=== PATIENT | female | born 1935 | race Caucasian/White ===

== ENCOUNTER → 2017-05-02 | Outpatient (CLI) | payer MEDICARE ==
[~2017-05-02] MED LIST: FLUO20CA19 PO; LEVO50TA5 PO; OMEP20TA62 PO; VANC125C2 PO
== END | disposition home or self-care (01) ==
LOC: CFH 10:37
PROVIDERS: ATTEND Family Medicine
DX: Z12.31 Encounter for screening mammogram for malignant neoplasm of breast (principal); R32 Unspecified urinary incontinence; K21.9 Gastro-esophageal reflux disease without esophagitis; Z85.048 Personal history of other malignant neoplasm of rectum, rectosigmoid junction, and anus
CPT/HCPCS: 74000; G0202

== ENCOUNTER → 2017-05-20 | Outpatient (CLI) | payer MEDICARE | END | disposition home or self-care (01) | LOC: STAR 11:09 | PROVIDERS: ATTEND Family Medicine | DX: Z01.810 Encounter for preprocedural cardiovascular examination (principal); R94.31 Abnormal electrocardiogram [ECG] [EKG]; R53.83 Other fatigue | CPT/HCPCS: 93005 ==

== ENCOUNTER → 2018-05-29 | Outpatient (CLI) | payer MEDICARE | END | disposition home or self-care (01) | LOC: CFH 11:16 | PROVIDERS: ATTEND Obstetrics & Gynecology Gynecology | DX: Z12.31 Encounter for screening mammogram for malignant neoplasm of breast (principal) | CPT/HCPCS: 77067 ==

== ENCOUNTER 2019-06-15 09:15 | Outpatient (CLI) | payer MEDICARE | END 2019-06-15 23:59 | disposition home or self-care (01) | LOC: CFH 09:15 | PROVIDERS: ATTEND Family Medicine | DX: Z12.31 Encounter for screening mammogram for malignant neoplasm of breast (principal) | CPT/HCPCS: 77067 ==

== ENCOUNTER 2019-08-20 14:07 | Outpatient (CLI) | payer MEDICARE ==
[~2019-08-20 14:07] MED LIST changes: -VANC125C2 PO; +VANC125C3 PO
== END 2019-08-20 23:59 | disposition home or self-care (01) ==
LOC: CFH 14:07
PROVIDERS: ATTEND Family Medicine
DX: J20.9 Acute bronchitis, unspecified (principal)
CPT/HCPCS: 71046

== ENCOUNTER → 2020-06-20 | Outpatient (CLI) | payer MEDICARE | END | disposition home or self-care (01) | LOC: CFH 10:04 | PROVIDERS: ATTEND Family Medicine | DX: Z12.31 Encounter for screening mammogram for malignant neoplasm of breast (principal) | CPT/HCPCS: 77067 ==

== ENCOUNTER 2021-02-05 00:01 | Inpatient (IN) | payer MEDICARE ==
[~2021-02-05] VITALS: Ht 165.1 cm; Wt 69.7 kg
--- NOTE | 2021-02-05 00:15 | NUR ---
INITIAL PT CONTACT. PT PRESENTS TO ED C/O CHEST PAIN SINCE 1999. PT STATES IT FEELS LIKE REFULX BUT KEPT GETTING WORSE, "IT HURTS WHEN I PUSH ON MY RIGHT SIDE TOO. I JUST DONT FEEL GOOD. I AM DEFINTELY HAVING NAUSEA TOO, I HAVE MAYBE JUST A LITTLE BIT OF DIZZINESS TOO". PT SITTING UPRIGHT ON GURNEY, PLACED ON CONTINUOUS PULSE OX AND CARDIAC MONITORING. PT DENIES ANY NEEDS AT THIS TIME. CALL LIGHT AND PERSONAL BELONGIGNS WITHIN REACH. FRIEND AT BEDSIDE. ERP AT BEDSIDE.
[2021-02-05] MEDS ORDERED: SODIUM CHLORIDE FLUSH 10ML SYR IVF ONE (00:30)
[2021-02-05] MEDS ORDERED: MAALOX/HYOSCYAMINE/LIDOCAINE 45 ML BTL ONE (00:45)
[2021-02-05 00:59] LABS: BASOPHILS % (AUTO) 0 % (0-1); EOSINOPHILS % (AUTO) 0 % (1-7); LYMPHOCYTES % (AUTO) 6 % (22-44); MEAN CORPUSCULAR HEMOGLOBIN 33.8 pg (27.0-34.8); MEAN CORPUSCULAR HGB CONC 34.1 g/dL (32.4-35.8); MEAN PLATELET VOLUME 7.8 fL (7.4-10.4); MONOCYTES % (AUTO) 7 % (2-9); NEUTROPHILS % (AUTO) 87 % (42-75); PLATELET COUNT 261 x10^3/uL (130-400); RED BLOOD COUNT 3.71 x10^6/uL (3.82-5.3); RED CELL DISTRIBUTION WIDTH 13.6 % (9.6-15.2)
[2021-02-05 01:00] LABS: MD NO
[2021-02-05] MEDS ORDERED: ONDANSETRON 2MG/ML, 2ML IVPush ONE (01:00)
[2021-02-05] MEDS ORDERED: PANTOPRAZOLE 80 MG in SODIUM CHLORIDE 0.9% 100 ML IV SCH (01:00)
[2021-02-05] MEDS ORDERED: MAALOX/HYOSCYAMINE/LIDOCAINE 45 ML BTL PO ONE (01:00)
[2021-02-05] MEDS ORDERED: PANTOPRAZOLE 80 MG in SODIUM CHLORIDE 0.9% 50 ML IVPB ONE (01:00)
[2021-02-05] MEDS ORDERED: ONDANSETRON 2MG/ML, 2ML ONE (01:00)
[2021-02-05 01:04] LABS: INTERNATIONAL NORMALIZED RATIO 0.98 (0.93-1.1); PROTHROMBIN TIME 10.5 Seconds (9.6-11.5)
[2021-02-05 01:05] LABS: ALANINE AMINOTRANSFERASE 88 U/L (12-78); ALBUMIN 3.3 g/dL (3.4-5.0); ANION GAP 7 mmol/L (5-15); CHLORIDE 100 mmol/L (98-107); CREATININE 0.85 mg/dL (0.55-1.02)
[2021-02-05 01:15] LABS: ALKALINE PHOSPHATASE 146 U/L (45-117); BILIRUBIN,TOTAL 0.6 mg/dL (0.2-1.0); TOTAL PROTEIN 6.6 g/dL (6.4-8.2); TROPONIN I < 0.015 ng/mL (0.000-0.045)
--- NOTE | 2021-02-05 01:42 | NUR ---
pt to us
[2021-02-05] MEDS ORDERED: hydrALAzine 20 MG/ML, 1ML IVPush PRN (02:00)
[2021-02-05] MEDS ORDERED: OXYcodone IR 5MG TABLET PO PRN (02:00)
[2021-02-05] MEDS ORDERED: ENOXAPARIN 40 MG/0.4 ML SQ SCH (02:00)
[2021-02-05] MEDS ORDERED: NITROGLYCERIN 0.4 MG BOTTLE (25 TABS) SL PRN (02:00)
[2021-02-05] MEDS ORDERED: ACETAMINOPHEN 325 MG TABLET PO PRN (02:00)
[2021-02-05] MEDS ORDERED: ONDANSETRON ODT 4 MG PO PRN (02:00)
[2021-02-05] MEDS ORDERED: PROMETHAZINE 25 MG/ML, 1ML IM PRN (02:00)
[2021-02-05] MEDS ORDERED: POLYETHYLENE GLYCOL 17 GM PACKET PO PRN (02:00)
[2021-02-05] MEDS ORDERED: ONDANSETRON 2MG/ML, 2ML IVPush PRN (02:00)
[2021-02-05] MEDS ORDERED: SODIUM CHLORIDE 0.9% 1,000 ML IV SCH (02:00)
[2021-02-05] MEDS ORDERED: BISACODYL 10 MG SUPP PR PRN (02:00)
[2021-02-05] MEDS ORDERED: DOCUSATE 100 MG CAPSULE PO PRN (02:00)
--- NOTE | 2021-02-05 02:01 | NUR ---
Pt to be admitted to [facility], room 511-2. Report called to SILVA WOOD.
[2021-02-05 02:40] LABS: FREE T4 (FREE THYROXINE) 1.51 ng/dL (0.76-1.46)
[2021-02-05] MEDS ORDERED: PANTOPRAZOLE 40 MG IV ONE (02:44)
[2021-02-05] MEDS: PANTOPRAZOLE 40 MG IV IVPush SCH ×2 (02:48→13:35)
[2021-02-05 03:16] VITALS: BP 127/69
[2021-02-05 06:35] LABS: TROPONIN I < 0.015 ng/mL (0.000-0.045)
[2021-02-05 07:56] VITALS: BP 138/61
[2021-02-05 08:17] LABS: MICROSCOPIC AUTO
[2021-02-05] MEDS: LEVOTHYROXINE 50 MCG TABLET PO SCH (08:38)
[2021-02-05] MEDS: FLUOXETINE HCL 20 MG CAPSULE PO SCH ×2 (08:38→08:39)
[2021-02-05] MEDS ORDERED: TEMPLATE NON-FORMULARY MED. (Omeprazole Magnesium** (Prilosec Otc**) 20 MG) PO SCH (09:00)
[2021-02-05] MEDS ORDERED: LACTATED RINGERS 1,000 ML IV SCH (10:30)
[2021-02-05] MEDS ORDERED: SINCALIDE (KINEVAC) 5 MCG ONE (12:10)
[2021-02-05 13:48] LABS: BASOPHILS % (AUTO) 0 % (0-1); EOSINOPHILS % (AUTO) 0 % (1-7); LYMPHOCYTES % (AUTO) 3 % (22-44); MEAN CORPUSCULAR HEMOGLOBIN 33.2 pg (27.0-34.8); MEAN CORPUSCULAR HGB CONC 33.7 g/dL (32.4-35.8); MEAN PLATELET VOLUME 7.8 fL (7.4-10.4); MONOCYTES % (AUTO) 9 % (2-9); NEUTROPHILS % (AUTO) 88 % (42-75); PLATELET COUNT 255 x10^3/uL (130-400); RED BLOOD COUNT 3.92 x10^6/uL (3.82-5.3); RED CELL DISTRIBUTION WIDTH 13.8 % (9.6-15.2)
[2021-02-05 13:57] LABS: MD NO
[2021-02-05 14:00] LABS: TROPONIN I < 0.015 ng/mL (0.000-0.045)
[2021-02-05 14:24] VITALS: BP 118/71
[2021-02-05 21:18] VITALS: BP 131/72
[2021-02-06 02:39] VITALS: BP 131/72
[2021-02-06] MEDS: PANTOPRAZOLE 40 MG IV IVPush SCH ×2 (04:01→17:09)
[2021-02-06 05:00] LABS: BASOPHILS % (AUTO) 1 % (0-1); EOSINOPHILS % (AUTO) 0 % (1-7); LYMPHOCYTES % (AUTO) 4 % (22-44); MEAN CORPUSCULAR HEMOGLOBIN 33.8 pg (27.0-34.8); MEAN PLATELET VOLUME 8.2 fL (7.4-10.4); MONOCYTES % (AUTO) 8 % (2-9); NEUTROPHILS % (AUTO) 86 % (42-75); PLATELET COUNT 225 x10^3/uL (130-400); RED CELL DISTRIBUTION WIDTH 13.9 % (9.6-15.2)
[2021-02-06 05:07] LABS: MD NO
[2021-02-06 05:09] LABS: ALANINE AMINOTRANSFERASE 403 U/L (12-78); ALBUMIN 2.8 g/dL (3.4-5.0); ANION GAP 5 mmol/L (5-15); CALCIUM 8.4 mg/dL (8.5-10.1); CHLORIDE 104 mmol/L (98-107)
[2021-02-06 05:12] LABS: ALKALINE PHOSPHATASE 212 U/L (45-117); BILIRUBIN,TOTAL 1.2 mg/dL (0.2-1.0); CHOL/HDL RATIO 1.6; CHOLESTEROL, TOTAL 132 mg/dL (140-239); CREATININE 0.68 mg/dL (0.55-1.02); HDL CHOL % 63 % (28-40); HDL CHOLESTEROL (DIRECT) 83 mg/dL (40-60); LDL CHOLESTEROL,CALCULATED 41 mg/dL (54-169); LDL/HDL RATIO 0.5 (0.5-3.0); TOTAL PROTEIN 5.8 g/dL (6.4-8.2); TRIGLYCERIDES 39 mg/dL (50-200); VLDL CHOLESTEROL 8 mg/dL (0-25)
[2021-02-06 07:49] VITALS: BP 111/68
[2021-02-06] MEDS: FLUOXETINE HCL 20 MG CAPSULE PO SCH (08:34)
[2021-02-06] MEDS: LEVOTHYROXINE 50 MCG TABLET PO SCH (10:22)
[2021-02-06 13:16] VITALS: BP 118/70
[2021-02-06 15:47] LABS: ALBUMIN 2.7 g/dL (3.4-5.0)
[2021-02-06 15:49] LABS: BILIRUBIN, DIRECT 0.4 mg/dL (0.1-0.2); BILIRUBIN,INDIRECT 0.8 mg/dL (0.0-2.0); BILIRUBIN,TOTAL 1.2 mg/dL (0.2-1.0); TOTAL PROTEIN 5.7 g/dL (6.4-8.2)
[2021-02-06 18:27] VITALS: BP 129/83
[2021-02-07 00:08] VITALS: BP_SYST 139; BP_SYST 99; BP_DIAS 60; BP_DIAS 85
[2021-02-07] MEDS: PANTOPRAZOLE 40MG TABLET PO SCH ×2 (05:31→16:00)
[2021-02-07 06:13] LABS: ALANINE AMINOTRANSFERASE 219 U/L (12-78); ALBUMIN 2.5 g/dL (3.4-5.0); ANION GAP 5 mmol/L (5-15); CALCIUM 8.2 mg/dL (8.5-10.1); CHLORIDE 106 mmol/L (98-107); CREATININE 0.67 mg/dL (0.55-1.02)
[2021-02-07 06:16] LABS: ALKALINE PHOSPHATASE 162 U/L (45-117); BILIRUBIN,TOTAL 0.7 mg/dL (0.2-1.0); TOTAL PROTEIN 5.5 g/dL (6.4-8.2)
[2021-02-07 06:54] VITALS: BP 111/66
[2021-02-07] MEDS: LEVOTHYROXINE 50 MCG TABLET PO SCH (09:16)
[2021-02-07] MEDS: FLUOXETINE HCL 20 MG CAPSULE PO SCH (09:16)
[2021-02-07 12:45] VITALS: BP 128/72
[2021-02-07] MEDS ORDERED: INDOCYANINE GREEN 25 MG VIAL ONE (13:50)
[2021-02-07] MEDS ORDERED: INDOCYANINE GREEN 25 MG VIAL IV ONE (14:00)
[2021-02-07] MEDS ORDERED: CHLORHEXIDINE 15 ML UDC ONE (14:26)
[2021-02-07] MEDS ORDERED: CHLORHEXIDINE 15 ML UDC PO ONE (14:30)
[2021-02-07] MEDS ORDERED: FENTANYL PF 250 MCG/5ML ONE (14:47)
[2021-02-07] MEDS ORDERED: MIDAZOLAM 1 MG/ML, 2ML ONE (14:47)
[2021-02-07] MEDS ORDERED: EPINEPHRINE 1 MG/ML, 1ML ONE (15:00)
[2021-02-07] MEDS ORDERED: BUPIVACAINE/PF 0.5% ONE (15:00)
[2021-02-07] MEDS ORDERED: LABETALOL 5MG/ML, 20ML IV PRN (16:30)
[2021-02-07] MEDS ORDERED: HYDROmorphone 1 MG/ML, 1ML INJ IV PRN (16:30)
[2021-02-07] MEDS ORDERED: hydrALAzine 20 MG/ML, 1ML IV PRN (16:30)
[2021-02-07] MEDS ORDERED: ONDANSETRON 2MG/ML, 2ML IVPush PRN (16:30)
[2021-02-07] MEDS ORDERED: DIAZEPAM 5 MG/ML, 2ML IV PRN ×2 (16:30)
[2021-02-07] MEDS ORDERED: ALBUTEROL SULFATE 2.5 MG/3 ML NPPB PRN (16:30)
[2021-02-07] MEDS ORDERED: PROMETHAZINE 25 MG/ML, 1ML IV PRN (16:30)
[2021-02-07] MEDS ORDERED: METOCLOPRAMIDE 5 MG/ML, 2ML IV PRN (16:30)
[2021-02-07] MEDS ORDERED: OXYcodone 5 MG/5 ML ORAL.SOL UDC PO PRN (16:30)
[2021-02-07] MEDS ORDERED: KETOROLAC 30 MG/1 ML IV PRN (16:30)
[2021-02-07] MEDS ORDERED: MEPERIDINE/PF 25MG/0.5ML IVPush PRN (16:30)
[2021-02-07] MEDS ORDERED: ACETAMINOPHEN 650 MG/20.3 ML UDC ONE (16:44)
[2021-02-07] MEDS ORDERED: KETOROLAC 30 MG/1 ML ONE (16:44)
[2021-02-07] MEDS ORDERED: FENTANYL PF 100 MCG/2ML ONE (16:45)
[2021-02-07] MEDS ORDERED: OXYcodone 5 MG/5 ML ORAL.SOL UDC ONE (16:45)
[2021-02-07] MEDS: FENTANYL PF 100 MCG/2ML IV PRN ×2 (16:47→16:52)
[2021-02-07 19:38] VITALS: BP 101/61
[2021-02-07 23:48] VITALS: BP 118/65
[2021-02-08 03:32] VITALS: BP 157/70
[2021-02-08] MEDS: PANTOPRAZOLE 40MG TABLET PO SCH ×2 (05:43→16:41)
[2021-02-08 05:47] LABS: BASOPHILS % (AUTO) 0 % (0-1); EOSINOPHILS % (AUTO) 0 % (1-7); LYMPHOCYTES % (AUTO) 2 % (22-44); MD NO; MEAN CORPUSCULAR HEMOGLOBIN 33.7 pg (27.0-34.8); MEAN PLATELET VOLUME 7.6 fL (7.4-10.4); MONOCYTES % (AUTO) 11 % (2-9); NEUTROPHILS % (AUTO) 88 % (42-75); PLATELET COUNT 239 x10^3/uL (130-400); RED BLOOD COUNT 3.57 x10^6/uL (3.82-5.3); RED CELL DISTRIBUTION WIDTH 13.5 % (9.6-15.2)
[2021-02-08 05:54] LABS: CHLORIDE 101 mmol/L (98-107)
[2021-02-08] MEDS ORDERED: LEVOTHYROXINE 50 MCG TABLET PO SCH (06:00)
[2021-02-08 06:01] LABS: ALANINE AMINOTRANSFERASE 157 U/L (12-78); ALBUMIN 2.5 g/dL (3.4-5.0); ALKALINE PHOSPHATASE 165 U/L (45-117); ANION GAP 8 mmol/L (5-15); CALCIUM 8.2 mg/dL (8.5-10.1); CREATININE 0.54 mg/dL (0.55-1.02); TOTAL PROTEIN 5.8 g/dL (6.4-8.2)
[2021-02-08] MEDS ORDERED: POTASSIUM CHLORIDE 20 MEQ TAB.ER.PRT PO ONE (07:00)
[2021-02-08 07:24] VITALS: BP 117/70
[2021-02-08] MEDS: FLUOXETINE HCL 20 MG CAPSULE PO SCH (07:54)
[2021-02-08 13:54] VITALS: BP 97/62
== END 2021-02-08 19:20 | disposition home or self-care (01) | DRG 417 ==
LOC: ED 01:34 → EDIP 01:57 → 5SO 02:55 → 4NE 02-07 17:28
PROVIDERS: ADMIT Internal Medicine; ATTEND Family Medicine
PROC: 0FT44ZZ Resection of Gallbladder, Percutaneous Endoscopic Approach (ICD-10-PCS; principal; 2021-02-07 17:15)
DX: K80.12 Calculus of gallbladder with acute and chronic cholecystitis without obstruction (principal); J96.91 Respiratory failure, unspecified with hypoxia; K21.9 Gastro-esophageal reflux disease without esophagitis; E03.9 Hypothyroidism, unspecified; F32.9 Major depressive disorder, single episode, unspecified; Z85.048 Personal history of other malignant neoplasm of rectum, rectosigmoid junction, and anus; Z92.3 Personal history of irradiation; Z92.21 Personal history of antineoplastic chemotherapy; I95.9 Hypotension, unspecified; R74.8 Abnormal levels of other serum enzymes; R74.01 Elevation of levels of liver transaminase levels; Z20.822 Contact with and (suspected) exposure to COVID-19; Z88.0 Allergy status to penicillin; Z88.2 Allergy status to sulfonamides; D72.829 Elevated white blood cell count, unspecified; R00.1 Bradycardia, unspecified
CPT/HCPCS: 36415; 71045; 74181; 76700; 78227; 80053; 80061; 80076; 81001; 83036; 83690; 83735; 84100; 84439; 84443; 84484; 85025; 85610; 86850; 86900; 88304; 93005; 93306; 96365; 96375; G0378; J0171; J1885; J2250; J2405; J3010; A9537; C9113; J2805; J7030; J7120; U0003

== ENCOUNTER 2021-06-23 09:29 | Outpatient (CLI) | payer MEDICARE | END 2021-06-23 23:59 | disposition home or self-care (01) | LOC: CFH 09:29 | PROVIDERS: ATTEND Family Medicine | DX: Z12.31 Encounter for screening mammogram for malignant neoplasm of breast (principal) | CPT/HCPCS: 77063; 77067 ==

== ENCOUNTER → 2021-07-24 | Outpatient (CLI) | payer MEDICARE | END | disposition home or self-care (01) | LOC: CFH 11:33 | PROVIDERS: ATTEND Family Medicine | DX: M81.0 Age-related osteoporosis without current pathological fracture (principal); Z78.0 Asymptomatic menopausal state | CPT/HCPCS: 77080 ==